=== PATIENT | male | born 1980 | race Caucasian/White ===

== ENCOUNTER 2019-05-12 10:32 | Emergency (ER) | payer SELFPAY ==
[2019-05-12 10:33] VITALS: BP 149/82; PULSE 74; RESP 18; TEMP 36.8; O2SAT 99; BMI 24.7
--- NOTE | 2019-05-12 11:01 | ED.VIS.GEN ---
History of Present Illness Chief Complaint: Eye Problem Informant: Patient Onset: Yesterday Maximum Severity: Mild Narrative: Patient complains of possible corneal abrasion left eye he indicates eyes irritated he believes he may injured it, he does wear contacts he has no specific mechanism, nothing blue in the eye or got in the eye he had no foreign body exposure, he indicates he had corneal abrasions before he feels he has not 1 again the left eye with no right eye symptoms, he thought it would get better symptoms persisted he came in today for evaluation he does wear his contacts which are out, he is currently wearing his eyeglasses his vision is baseline no change no URI symptoms Past Medical History - Allergies and Home Meds Allergies/Adverse Reactions: Allergies amoxicillin [Amoxicillin] Allergy (Verified 05/12/19 10:33) Rash Primary Care Physician: Yandel Martinez MD [Primary Care Provider] - Past Medical History: - Smoking Status: Current every day smoker Review of Systems ROS: - Negative except as above General: Denies: Chills, Fever, Sweats Eyes: Reports: Visual changes - left. Denies: Visual changes - bilaterally, Diplopia ENT: Denies: Rhinorrhea, Sore throat Cardiovascular: Denies: Chest pain, Palpitations Respiratory: Denies: Dyspnea, Cough, Dyspnea on exertion Gastrointestinal: Denies: Abdominal pain, Nausea, Vomiting, Diarrhea, Melena, Hematochezia Genitourinary: Denies: Dysuria, Hematuria, Frequency Musculoskeletal: Denies: Back pain, Extremity Pain Skin: Denies: Rash, Wounds Neurological: Denies: Headache, Weakness, Numbness Physical Exam Vital Signs/Narrative: Vital Signs Temp Pulse Resp BP Pulse Ox 05/12/19 10:33 98.2 F 74 18 149/82 H 99 General: Well nourished, Well developed, No Acute Distress Head: Normocephalic, Atraumatic Eyes: Perrl, EOMI, - - He has a corneal abrasion involving the 6 o'clock position of the cornea left, anterior chambers intact pupil reacts well no foreign body appreciated no drainage, tetracaine fluorescein applied there is an area of uptake at the 6 o'clock position as above the rest the eye exam is unremarkable no symptoms right eye his visual acuity is intact with his glasses he is able to read the small for time for print on the 4 x 4 bandage card ENT: Moist mucous membranes, No rhinorrhea Neck: Supple, Nontender Cardiovascular: Regular rate, Regular rhythm, No murmurs Respiratory: No distress, CTA bilaterally, Chest nontender Abdomen: Soft, Nontender, Nondistended, Normal bowel sounds Back: Nontender, Normal Inspection Extremities: Nontender, No edema Skin: Normal color, No rash Neurological: Alert, Oriented x3, Cranial nerves II-XII grossly intact, Normal Strength, Normal Sensation Psychological: Normal affect, Normal Mood Diagnostic/Tx/Re-eval - Medical Decision Making He is feeling better after tetracaine is applied, explained the above to him to start erythromycin topical ointment he will follow-up with ophthalmology avoid his contacts until he seen and return for change in symptoms Home stable Final impression Left corneal abrasion ED Disposition - Plan for ED Patient: Diagnosis: Injury of conjunctiva and corneal abrasion without foreign body, left eye, initial encounter Instructions: ED Corneal Abrasion Referrals: Yandel Martinez MD [Primary Care Provider] - Maggi Calhoun MD [STAFF PHYSICIAN] -
[2019-05-12] MEDS: Erythromycin Base 1 OPTH.TUBE 1 APPLIC LEFT EYE (11:16)
[2019-05-12] MEDS: Tetracaine 0.5% Ophthalmic Bottle 1 DRP LEFT EYE (11:36)
== END 2019-05-12 11:36 | disposition home or self-care (01) ==
LOC: ED 11:30
PROVIDERS: Emergency Provider Emergency Medicine; Family Provider Family Medicine; PCP Family Medicine
DX: S05.02XA Injury of conjunctiva and corneal abrasion without foreign body, left eye, initial encounter (principal); F17.200 Nicotine dependence, unspecified, uncomplicated; X58.XXXA Exposure to other specified factors, initial encounter; Y93.89 Activity, other specified; Y92.89 Other specified places as the place of occurrence of the external cause; Y99.8 Other external cause status
CPT/HCPCS: 99283

== ENCOUNTER 2019-10-25 07:00 | Emergency (ER) | payer OTHER, SELFPAY ==
[2019-10-25 07:01] VITALS: BP 147/78; PULSE 71; RESP 16; TEMP 36.6; O2SAT 97; BMI 24.4
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
--- NOTE | 2019-10-25 07:40 | NURSING ---
PT FILLING OUT WORK COMPENSATION PAPERWORK.
[2019-10-25 08:29] VITALS: BP 112/67; PULSE 88; RESP 17; TEMP 36.6; O2SAT 99
[2019-10-25] MEDS: Tetracaine 0.5% Ophthalmic Bottle 1 DRP EACH EYE (08:30)
[2019-10-25] MEDS: Fluorescein 1 MG STRIP 1 STRIP EACH EYE (08:30)
[2019-10-25] MEDS: Atropine Sulfate 1% 2 ml Bottle 1 DRP OPHTHALMIC (08:30)
[2019-10-25] MEDS: Erythromycin Base 1 OPTH.TUBE 1 APPLIC EACH EYE (08:30)
== END 2019-10-25 08:31 | disposition home or self-care (01) ==
PROVIDERS: Emergency Provider Emergency Medicine; PCP Family Medicine
DX: H20.9 Unspecified iridocyclitis (principal); H16.8 Other keratitis; F17.200 Nicotine dependence, unspecified, uncomplicated; W89.0XXA Exposure to welding light (arc), initial encounter; Y93.89 Activity, other specified; Y92.89 Other specified places as the place of occurrence of the external cause; Y99.0 Civilian activity done for income or pay
CPT/HCPCS: 99283

== ENCOUNTER 2021-03-21 09:51 | Emergency (ER) | payer SELFPAY ==
[2021-03-21 09:52] VITALS: BP 134/68; PULSE 76; RESP 6; TEMP 36.6; O2SAT 93; BMI 24.1
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
[2021-03-21] MEDS: HYDROcodone Bitartrate/Apap 5/325 Tablet PO (10:14)
== END 2021-03-21 11:11 | disposition home or self-care (01) ==
PROVIDERS: Emergency Provider Emergency Medicine; PCP Family Medicine
DX: M54.5 Low back pain (principal); F17.210 Nicotine dependence, cigarettes, uncomplicated; V47.5XXA Car driver injured in collision with fixed or stationary object in traffic accident, initial encounter; Y93.I9 Activity, other involving external motion; Y92.89 Other specified places as the place of occurrence of the external cause; Y99.8 Other external cause status
CPT/HCPCS: 72100; 99283

== ENCOUNTER 2021-06-24 14:44 | Emergency (ER) | payer SELFPAY ==
[2021-06-24 14:45] VITALS: BP 131/74; PULSE 76; RESP 16; TEMP 35.9; O2SAT 97; BMI 25.7
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
[2021-06-24] MEDS: Naproxen 500 MG Tablet PO (15:21)
== END 2021-06-24 15:22 | disposition home or self-care (01) ==
PROVIDERS: Emergency Provider Student in an Organized Health Care Education/Training Program; PCP Family Medicine
DX: S39.012A Strain of muscle, fascia and tendon of lower back, initial encounter (principal); F17.210 Nicotine dependence, cigarettes, uncomplicated; X50.1XXA Overexertion from prolonged static or awkward postures, initial encounter; Y93.I9 Activity, other involving external motion; Y92.410 Unspecified street and highway as the place of occurrence of the external cause; Y99.8 Other external cause status
CPT/HCPCS: 99283

== ENCOUNTER → 2022-12-01 | Outpatient (CLI) | payer OTHER, SELFPAY ==
--- NOTE | 2022-12-01 15:13 | CT_ITS ---
STUDY: CT HAND LEFT REASON FOR EXAM: Male, 42 years old. FX L HAND RADIATION DOSAGE (If Supplied By Facility): CTDIvol = ( 9.46 ) mGy, DLP = ( 246.72 ) mGycm. Individualized dose optimization techniques were used for this CT.? TECHNIQUE: Multiple axial, coronal and sagittal CT images of the hand are obtained. COMPARISON: None. FINDINGS: There is a demonstrated comminuted displaced intra-articular fracture at the base of the second metacarpal. There is a subtle fracture superior anterior interarticular trapezoid. The remaining visualized carpal bones are intact normal alignment. Normal appearance of the radial carpal and radial ulnar joints are present. The visualized metacarpophalangeal joints are normal. CT/Extremity Upper without Contra IMPRESSION: Comminuted interarticular fracture with displacement at the base of the second metacarpal. Subtle intra-articular fracture along the superior lateral trapezoid. Electronically Signed: Marcus Peacock DO at 16:37 EDT ,
== END | disposition home or self-care (01) ==
LOC: CT 15:11
PROVIDERS: PCP Family Medicine; Referring Provider Physician Assistant; Visit Provider Physician Assistant
DX: S62.341A Nondisplaced fracture of base of second metacarpal bone, left hand, initial encounter for closed fracture (principal); M79.642 Pain in left hand; X58.XXXA Exposure to other specified factors, initial encounter
CPT/HCPCS: 73200

== ENCOUNTER 2023-03-06 11:00 | Outpatient (RCR) | payer OTHER, SELFPAY ==
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
--- NOTE | 2023-03-06 11:28 | HP.OT.NRP ---
Patient Information Patient Information: NARESH JAVED Jr. was seen in my office for initial evaluation on 01/16/23. The following Plan of Care was established for this patient: POC Established Initial Frequency: 2-3x /Week Initial Duration: 4 Weeks Plan: Patient is discharged at this time. Patient has met goals and is functionally indep with use of L hand. Anticipated Interventions Anticipated Interventions: A/AAROM/PROM, Strengthening, Orthoses, Joint Protection/Energy Conservation, Ergonomic Education, Education re assistive Equipment, Education re Diagnosis and Home Program Last Seen Last Seen: This patient was last seen in our office 03/06/23. Pertinent comments regarding their Occupational therapy will appear below: Patient seen for a total of 14 visits to address the L displaced dx of 2nd metacarpal bone and trapezium. Patient is functionally indep with ADL's/IADL's and demonstrates intact strength and ROM of the L hand. Patient denies any concerns at this time and agrees that his strength has returned. He reports follow up with end of February and hopes to return to work. Patient is discharged from OT at this time, he can be re-assessed if concerns arise. At this point I will be discontinuing this patient from occupational therapy. I would be happy to see this patient again in the future if found appropriate by the physician. Thank you! Mey Araya
== END 2023-03-06 19:00 | disposition home or self-care (01) ==
LOC: OT 11:00
PROVIDERS: PCP Family Medicine; Referring Provider Student in an Organized Health Care Education/Training Program; Visit Provider Student in an Organized Health Care Education/Training Program
DX: S62.311D Displaced fracture of base of second metacarpal bone, left hand, subsequent encounter for fracture with routine healing (principal); S62.175D Nondisplaced fracture of trapezium [larger multangular], left wrist, subsequent encounter for fracture with routine healing
CPT/HCPCS: 97110; 97165; 97530

== ENCOUNTER 2023-05-21 17:55 | Outpatient (REF) | payer SELFPAY ==
[2023-05-21 17:56] VITALS: BP 119/81; PULSE 113; RESP 22; TEMP 36.2; O2SAT 95; BMI 27.6
[2023-05-21] MEDS: Haloperidol Lactate 5 MG/ML Vial 10 MG IM (18:00)
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
[2023-05-21 18:30] LABS: Absolute Neutrophil Count 7.6 X10^3/uL (2.0-7.7); Basophil# 0.06 X10^3/uL; Basophil% 0.5 % (0-1); Eosinophil# 0.03 X10^3/uL; Eosinophils% 0.3 % (0-5); Hematocrit 46.8 % (40-54); Hemoglobin 15.4 g/dL (13.0-16.5); Lymphocyte % 28.4 % (19-41); Mean Corp Hgb Conc 32.9 g/dL (32-36); Mean Corpuscular Hgb 28.8 pg (27.0-32.0); Mean Corpuscular Volume 87.6 fL (80-94); Mean Platelet Vol. 9.4 fl (6.2-12.0); Monocyte# 0.85 X10^3/uL; Monocyte% 7.1 % (0-10); NRBC Flagged by Analyzer 0 % (0-5); Neutrophil % 63.3 % (47-70); Platelet Count 299 K/mm3 (150-450); RBC Distribution Width CV 13.5 % (11.6-14.6); RBC Distribution Width SD 43.3 fl (35.1-43.9); Red Blood Count 5.34 M/mm3 (4.6-6.2)
[2023-05-21 18:43] LABS: Amphetamine Urine VISTA NEGATIVE (<1000 ng/mL); Barbiturate Urine VISTA NEGATIVE (< 200 ng/mL); Benzodiazepine Urine VISTA NEGATIVE (< 200 ng/mL); Cocaine Urine VISTA NEGATIVE (< 300 ng/mL); Ecstacy Urine VISTA NEGATIVE (< 500 ng/mL); Methadone Urine VISTA NEGATIVE (< 300 ng/mL); PCP Urine VISTA NEGATIVE (< 25 ng/mL); THC Urine VISTA NEGATIVE (< 50 ng/mL); Vista UDS pH Range 6
[2023-05-21] MEDS: Ondansetron ODT 4 MG Tablet PO (18:47)
[2023-05-21 18:48] LABS: AST(SGOT) 22 U/L (15-37); Alanine Aminotransfer ALT/SGPT 26 U/L (16-61); Albumin, Serum 3.7 g/dL (3.2-5.0); Alkaline Phosphatase 134 U/L (45-117); Anion Gap 14 (5-15); BUN 19 mg/dL (7-18); Bilirubin, Direct 0.12 mg/dL (0.00-0.30); Calcium,Total 8.8 mg/dL (8.5-10.1); Chloride 105 mmol/L (98-107); Creatinine, Serum 1.27 mg/dL (0.70-1.30); EST Glomerular Filtration Rate 66 mL/min (>60); Est Glom Filt Rate - Afr Amer 80 mL/min (>60); Globulin 4.1 g/dL (2.2-4.2); Glucose 109 mg/dL (74-106); Potassium 3.3 mmol/L (3.5-5.1); Protein, Total 7.8 g/dL (6.4-8.2); Sodium Level 138 mmol/L (136-145)
[2023-05-21 19:29] VITALS: BP 123/77; PULSE 82; RESP 18; O2SAT 94
--- NOTE | 2023-05-21 19:29 | EKG12_ITS ---
Test Reason : MHC Blood Pressure : / mmHG Vent. Rate : 081 BPM Atrial Rate : 081 BPM P-R Int : 156 ms QRS Dur : 096 ms QT Int : 400 ms P-R-T Axes : 070 077 054 degrees QTc Int : 464 ms Normal sinus rhythm Normal ECG Confirmed by TRI PARKER, MONAE ([id number]), web content editor JUANI VILLALTA ([id number]) on 06/05/2023 1:35:31 PM Referred By: HANDY Confirmed By:OLEKSANDR BARTLETT MD
[2023-05-21 19:30] LABS: Bacteria 0 SEEN /hpf (None Seen); Mucous, Urine 0 SEEN /hpf (<or=2+)
[2023-05-21 19:32] LABS: Color, Urine Yellow (Yellow); Glucose, Dipstick Normal (Normal); Ketone-Dipstick 5 mg/dl (Negative); Leukocyte Esterase-Dipstick Negative /ul (Negative); Nitrite-Dipstick Negative (Negative); Occult Blood-Urine 25 /ul (Negative); Protein-Dipstick 15 mg/dl (Negative); Urine Bilirubin Dipstick Negative (Negative); Urine Clarity Sl. Cloudy (Clear); Urine Urobilinogen Normal (Normal)
[2023-05-21 19:37] LABS: ALB/GLOB Ratio 0.9 RATIO (0.9-2.4); AST(SGOT) 24 U/L (15-37); Alanine Aminotransfer ALT/SGPT 26 U/L (16-61); Albumin, Serum 3.7 g/dL (3.2-5.0); Alkaline Phosphatase 133 U/L (45-117); Anion Gap 14 (5-15); BUN 19 mg/dL (7-18); BUN/Creat Ratio 14.8 RATIO (10-20); Chloride 105 mmol/L (98-107); Creatinine, Serum 1.28 mg/dL (0.70-1.30); EST Glomerular Filtration Rate 66 mL/min (>60); Est Glom Filt Rate - Afr Amer 79 mL/min (>60); Estimated Creatinine Clearance 80.07 ml/min; Globulin 4.1 g/dL (2.2-4.2); Glucose 110 mg/dL (74-106); Potassium 3.3 mmol/L (3.5-5.1); Protein, Total 7.8 g/dL (6.4-8.2); Sodium Level 138 mmol/L (136-145)
[2023-05-21 19:53] LABS: Amorphous Sediment 1+ URATE; Red Blood Cells-Urine 0-5 SEEN /hpf (0-5); Squamous Epithelial Cells - UA 0-5 SEEN /hpf (0-5); White Blood Cells 0-5 SEEN /hpf (0-5)
[2023-05-21 21:30] VITALS: BP 112/80
[2023-05-21 22:00] VITALS: BP 113/76
[2023-05-21 23:00] VITALS: BP 125/93
[2023-05-21 23:13] VITALS: BP 105/73; PULSE 76; RESP 16; O2SAT 94
== END 2023-05-21 23:13 ==
LOC: ED 17:55
PROVIDERS: PCP Family Medicine; Visit Provider Emergency Medicine
DX: F10.129 Alcohol abuse with intoxication, unspecified (principal); Z20.822 Contact with and (suspected) exposure to COVID-19; Z72.811 Adult antisocial behavior; F17.210 Nicotine dependence, cigarettes, uncomplicated; Y90.7 Blood alcohol level of 200-239 mg/100 ml
CPT/HCPCS: 36415; 80048; 80053; 80076; 80307; 81001; 82077; 85025; 87811; 93005; 99285; P9612

== ENCOUNTER 2024-10-01 11:49 | Emergency (ER) | payer SELFPAY ==
[2024-10-01 11:50] VITALS: BP 155/92; PULSE 64; RESP 18; TEMP 37.2; O2SAT 98; BMI 27.1
--- NOTE | 2024-10-01 12:04 | EDS_ITS ---
HPI History of Present Illness Chief Complaint: Abscess Narrative Narrative: 44-year-old male presents with pain and swelling of his right groin that has had for the last 4 days. He denies any fevers or chills, no nausea or vomiting, no exacerbating or alleviating factors. Of note, remotely he states he had a right thigh abscess which required incision and drainage. He states that there is a sore area in his right groin but is not on his thigh, it is in the crease. He presents for evaluation of the area in his right groin that is painful and swollen. [facility] Medical History Hx of pneumothorax Back pain Kidney calculus Home Medications ?Medication ?Instructions ?Recorded ?Last Taken ?Type doxycycline monohydrate 100 mg 100 mg PO BID #20 CAPSU LES 10/01/24 Unknown Rx capsule sulfamethoxazole 800 1 tab PO BID #20 tabs Unknown Rx mg-trimethoprim 160 mg tablet (Bactrim DS) Allergy/AdvReac Type Severity Reaction Status Date / Time amoxicillin (Amoxicillin) Allergy Rash Verified 10/01/24 11:50 Social History Smoking Status: Current every day smoker tobacco type: cigarettes ROS ROS ED ROS Narrative Review of systems positive for right groin pain and swelling more in the crease of his groin and towards his genitals. No fevers or chills, no nausea or vomiting. No noted drainage. EXAM Physical Exam Narrative Exam Narrative: Afebrile. Vital signs noted. Nontoxic-appearing. Cardiovascular examination reveals a regular rate and rhythm. Lungs are clear to auscultation bilaterally. Abdomen is soft and nontender with positive bowel sounds. No guarding or rebound. Chaperoned inspection of the groin does reveal an indurated area more towards the genitals with minimal amount of erythema, no fluctuance. No purulent drainage noted. No testicular tenderness. Const Vital Signs: 10/01/24 11:50 Temperature 98.9 F Temperature Source Oral Pulse Rate 64 Respiratory Rate 18 Blood Pressure 155/92 H Blood Pressure Mean 113 Pulse Ox 98 Oxygen Delivery Method Room Air MDM MDM MDM Narrative Medical decision making narrative: Differential diagnosis includes scrotal abscess/groin abscess versus cellulitis. Given the induration, I am not sure that this abscess is amenable to incision and drainage. Through shared decision making, patient prefers not to have incision and drainage performed today I would like to try antibiotics. He will continue [id number] analgesics and given that he has had this in the past, with any concern for MRSA he was started on doxycycline and Bactrim DS for 10 days as he has a known allergy to amoxicillin. He will continue warm compresses and follow-up with his primary care provider. Return instructions to the emergency department were reviewed. Disposition is discharged home in stable condition. History & Record Review Discussion w/independent historian: Patient Discharge Plan Triage Chief Complaint: Abscess ED Provider: Cole Alexander Dx/Rx/DC Orders Clinical Impression: Abscess of groin, right, Rt groin pain Instructions: ED Abscess Antibiotic Treatment Only Prescriptions: New sulfamethoxazole-trimethoprim [Bactrim DS] 800-160 mg tablet 1 tab PO BID Qty: 20 0RF doxycycline monohydrate 100 mg capsule 100 mg PO BID Qty: 20 0RF Primary Care Provider: Yandel Martinez Referrals: Yandel Martinez MD [Primary Care Provider] - 3-5 Days if not improving Activity Restrictions/Additional Instructions: Antibiotics as directed. Return with fever, increased redness, new or worsening symptoms. Continue warm compresses. Print Language: [place] Disposition Disposition: Home, Self Care
[2024-10-01 12:21] VITALS: BP 155/92; PULSE 64; RESP 18; TEMP 37.2; O2SAT 98
== END 2024-10-01 12:40 | disposition home or self-care (01) ==
LOC: ED 12:34
PROVIDERS: Emergency Provider Emergency Medicine; PCP Family Medicine; Visit Provider Emergency Medicine
DX: L02.214 Cutaneous abscess of groin (principal); Z88.0 Allergy status to penicillin
CPT/HCPCS: 99282

== ENCOUNTER 2025-07-21 13:56 | Emergency (ER) | payer SELFPAY ==
[2025-07-21 13:56] VITALS: BP 161/95; PULSE 97; RESP 16; TEMP 36.6; O2SAT 97; BMI 26.9
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
--- NOTE | 2025-07-21 14:40 | RAD_ITS ---
PROCEDURE: SHOULDER MIN 2 VIEWS 07/21/2025 REASON FOR EXAM: INJURY/PAIN TECHNIQUE: Procedure Code: RADSH Modality: DX Procedure: SHOULDER MIN 2 VIEWS Laterality: Left shoulder. COMPARISON: None FINDINGS: Bones: No fracture seen. Joints: Normal alignment of the acromioclavicular and glenohumeral joints. Soft tissues: Calcified granulomas in the left upper lobe. Other: RAD/Shoulder min 2 Views IMPRESSION: NO ACUTE FRACTURE OR DISLOCATION. Reading Location: [facility]
[2025-07-21 16:08] VITALS: BP 138/90; PULSE 84; RESP 17; O2SAT 93
[2025-07-21 16:11] VITALS: BP 138/90; PULSE 84; RESP 17; TEMP 36.6; O2SAT 93
== END 2025-07-21 16:11 | disposition home or self-care (01) ==
PROVIDERS: Emergency Provider Emergency Medicine; PCP Family Medicine; Visit Provider Emergency Medicine
DX: S46.912A Strain of unspecified muscle, fascia and tendon at shoulder and upper arm level, left arm, initial encounter (principal); F17.210 Nicotine dependence, cigarettes, uncomplicated; X58.XXXA Exposure to other specified factors, initial encounter
CPT/HCPCS: 73030; 99283